=== PATIENT | female | born 1965 | race Caucasian/White ===

== ENCOUNTER 2017-04-20 23:02 | Inpatient (IN) | payer OTHER ==
[~2017-04-20] VITALS: Ht 162.6 cm; Wt 73.4 kg
[2017-04-20 23:42] LABS: HEMATOCRIT 35.7 % (36.0-46.0); MCH 29.2 PG (29.0-34.0); MCHC 33.9 G/DL (30.0-36.0); MCV 86.2 FL (83-99); MEAN PLAT.VOLUME 9.2 uM^3 (9.5-12.4); PLATELET COUNT 335 K/uL (156-360); RBC DIS.WIDTH-CV 13.1 % (11.8-14.6); RBC DIS.WIDTH-SD 40.9 % (39-53); RED BLOOD COUNT 4.14 M/uL (3.80-5.20); WHITE BLOOD COUNT 8.3 K/uL (4.1-10.2)
[2017-04-20 23:50] LABS: CHLORIDE 108 mEq/L (99-109); POTASSIUM 3.5 mEq/L (3.7-5.4); SODIUM 137 mEq/L (136-147)
[2017-04-20 23:52] LABS: GLUCOSE 96 mg/dL (70-99)
[2017-04-20 23:54] LABS: ANION GAP 8 MEQ/L (2-14)
[2017-04-20 23:56] LABS: GFR ESTIMATE (CALCULATED) > 59 mL/min/
[2017-04-20 23:57] LABS: UREA NITROGEN (BUN) 18 mg/dL (9-23)
[2017-04-21] VITALS (7 sets, daily range): BP systolic 107–120; BP diastolic 59–67
[2017-04-21 00:04] LABS: TROP-I INTERPRETATION NEGATIVE; TROPONIN-I 0.01 ng/mL (0.0-0.30)
[2017-04-21 01:44] LABS: TOTAL BILIRUBIN 0.4 mg/dL (0.0-1.0)
[2017-04-21 01:45] LABS: ALKALINE PHOSPHATASE 62 IU/L (3-129)
[2017-04-21 01:47] LABS: DIRECT BILIRUBIN 0.2 mg/dL (0.0-0.3)
[2017-04-21] MEDS ORDERED: BIOTIN1 MG PO (01:47)
[2017-04-21] MEDS ORDERED: FISH OIL 1,0001 EAC7 PO (01:47)
[2017-04-21 01:48] LABS: LIPASE 34 U/L (1.0-51.0)
[2017-04-21] MEDS ORDERED: ONE DAILY FOR1 EAC1 PO (01:48)
[2017-04-21] MEDS ORDERED: GARLIC100 MG PO (01:48)
[2017-04-21] MEDS ORDERED: FOLIC ACID0.4 MG PO (01:49)
[2017-04-21] MEDS ORDERED: LO-DOSE ASPIRIN81 M2 PO (01:49)
[2017-04-21] MEDS ORDERED: VITAMIN B12 100MCG PO (01:49)
[2017-04-21] MEDS ORDERED: VITAMIN E100 UNIT PO (01:50)
[2017-04-21 05:32] LABS: HEMATOCRIT 32.2 % (36.0-46.0); MCH 27.9 PG (29.0-34.0); MCHC 32.3 G/DL (30.0-36.0); MCV 86.3 FL (83-99); MEAN PLAT.VOLUME 9.3 uM^3 (9.5-12.4); PLATELET COUNT 305 K/uL (156-360); RBC DIS.WIDTH-CV 13.2 % (11.8-14.6); RBC DIS.WIDTH-SD 41.6 % (39-53); RED BLOOD COUNT 3.73 M/uL (3.80-5.20)
[2017-04-21 05:59] LABS: ANION GAP 10 MEQ/L (2-14); CHLORIDE 109 MEQ/L (99-109); GFR ESTIMATE (CALCULATED) > 59 mL/min/; GLUCOSE 93 mg/dL (70-99); HDL CHOLESTEROL 46 MG/DL (Desirable>=50); LDL CHOLESTEROL 92 mg/dL (Desirable<100); NON-HDL CHOLESTEROL 111 mg/dL (Desirable<160); SAMPLE HEMOLYSIS CHECK 0; SAMPLE ICTERIC CHECK 0; SAMPLE LIPEMIA CHECK 0; SODIUM 140 MEQ/L (136-147); TOTAL CHOLESTEROL 157 mg/dL (Desirable<200); TRIGLYCERIDES 95 MG/DL (Normal: <150); UREA NITROGEN (BUN) 20 mg/dL (9-23)
[2017-04-21 06:02] LABS: POTASSIUM 4.4 MEQ/L (3.7-5.4); TROP-I INTERPRETATION POSITIVE; TROPONIN-I 0.63 ng/mL (0.0-0.30)
[2017-04-21 08:00] LABS: INTER. NORMALIZED RATIO 1.1; PROTHROMBIN TIME 12.2 SEC (10.2-12.9)
[2017-04-21 08:02] LABS: PTT 30.6 SEC (25-37)
[2017-04-21 12:53] LABS: TROP-I INTERPRETATION INDETERMINATE; TROPONIN-I 0.42 ng/mL (0.0-0.30)
[2017-04-22] VITALS (28 sets, daily range): BP systolic 93–156; BP diastolic 62–126
[2017-04-22 02:13] LABS: INTER. NORMALIZED RATIO 1.1
[2017-04-22 02:16] LABS: PTT 81.1 SEC (25-37)
[2017-04-22 02:23] LABS: TROP-I INTERPRETATION NEGATIVE; TROPONIN-I 0.26 ng/mL (0.0-0.30)
[2017-04-22 04:36] LABS: METH RESISTANT S AUREUS PCR NEGATIVE (NEGATIVE)
[2017-04-22 04:38] LABS: PROBE CHECK PASS; SPECIMEN PROCESSING CONTROL PASS
[2017-04-22 06:35] LABS: HEMATOCRIT 36.1 % (36.0-46.0); MCH 28.3 PG (29.0-34.0); MCHC 32.4 G/DL (30.0-36.0); MCV 87.2 FL (83-99); PLATELET COUNT 320 K/uL (156-360); RBC DIS.WIDTH-CV 13.2 % (11.8-14.6); RBC DIS.WIDTH-SD 42.4 % (39-53); RED BLOOD COUNT 4.14 M/uL (3.80-5.20); WHITE BLOOD COUNT 8.9 K/uL (4.1-10.2)
[2017-04-22 11:27] LABS: TROP-I INTERPRETATION POSITIVE; TROPONIN-I 44.46 ng/mL (0.0-0.30)
[2017-04-22 16:44] LABS: TROP-I INTERPRETATION POSITIVE; TROPONIN-I > 50.00 ng/mL (0.0-0.30)
[2017-04-23] VITALS (22 sets, daily range): BP systolic 106–140; BP diastolic 69–100
[2017-04-23 11:02] LABS: EOSINOPHIL (%) 0.5 % (0-5); EOSINOPHIL COUNT 0.1 K/uL (0-0.3); HEMATOCRIT 34.5 % (36.0-46.0); IMMATURE GRANULOCYTE (%) 0.3 % (0.0-0.7); INSTRUMENT ABS NEUTROPHIL CT 7.2 K/uL; LYMPHOCYTE COUNT 1.8 K/uL (1.0-2.8); MCH 28.3 PG (29.0-34.0); MCHC 32.8 G/DL (30.0-36.0); MCV 86.5 FL (83-99); MEAN PLAT.VOLUME 9.1 uM^3 (9.5-12.4); MONOCYTE (%) 12.5 % (3-12); MONOCYTE COUNT 1.3 K/uL (0-0.8); NEUTROPHIL (%) 69.2 % (45-76); NEUTROPHIL COUNT 7.2 K/uL (1.8-6.4); PLATELET COUNT 282 K/uL (156-360); RBC DIS.WIDTH-CV 13.2 % (11.8-14.6); RBC DIS.WIDTH-SD 42.1 % (39-53); RED BLOOD COUNT 3.99 M/uL (3.80-5.20); WHITE BLOOD COUNT 10.4 K/uL (4.1-10.2)
[2017-04-23 11:23] LABS: TROP-I INTERPRETATION POSITIVE; TROPONIN-I 34.79 ng/mL (0.0-0.30)
[2017-04-23 11:39] LABS: ANION GAP 6 MEQ/L (2-14); CHLORIDE 109 MEQ/L (99-109); GFR ESTIMATE (CALCULATED) > 59 mL/min/; GLUCOSE 111 mg/dL (70-99); MAGNESIUM 1.9 mg/dl (1.3-2.7); POTASSIUM 4.3 MEQ/L (3.7-5.4); SAMPLE HEMOLYSIS CHECK 0; SAMPLE ICTERIC CHECK 0; SAMPLE LIPEMIA CHECK 0; SODIUM 138 MEQ/L (136-147); UREA NITROGEN (BUN) 7 mg/dL (9-23)
[2017-04-24] VITALS: BP 113/81
[2017-04-24 04:00] VITALS: BP 141/96
[2017-04-24 05:39] LABS: HEMATOCRIT 35.5 % (36.0-46.0); MCH 28.2 PG (29.0-34.0); MCHC 32.4 G/DL (30.0-36.0); MEAN PLAT.VOLUME 9.3 uM^3 (9.5-12.4); PLATELET COUNT 314 K/uL (156-360); RBC DIS.WIDTH-CV 13.2 % (11.8-14.6); RBC DIS.WIDTH-SD 42.1 % (39-53); RED BLOOD COUNT 4.08 M/uL (3.80-5.20); WHITE BLOOD COUNT 9.7 K/uL (4.1-10.2)
[2017-04-24 08:00] VITALS: BP 114/84
[2017-04-24 09:20] LABS: Estimated Average Glucose 105 mg/dL (70-123); HEMOGLOBIN A1c (GLYCOHEMOGLOB) 5.3 % HGB (Below 5.7)
[2017-04-24 12:00] VITALS: BP 96/68
[2017-04-24 16:00] VITALS: BP 98/71
[2017-04-25 04:48] LABS: TROP-I INTERPRETATION POSITIVE
[2017-04-25 04:51] LABS: TROPONIN-I 27.51 ng/mL (0.0-0.30)
[2017-04-25 08:00] VITALS: BP 118/80
[2017-04-25 12:00] VITALS: BP 91/59
[2017-04-25 16:00] VITALS: BP 96/71
[2017-04-25 20:00] VITALS: BP 108/67
[2017-04-26] VITALS (7 sets, daily range): BP systolic 81–107; BP diastolic 47–72
[2017-04-26 05:56] LABS: HEMATOCRIT 36.2 % (36.0-46.0); MCH 28.4 PG (29.0-34.0); MCHC 32.6 G/DL (30.0-36.0); MEAN PLAT.VOLUME 9.4 uM^3 (9.5-12.4); PLATELET COUNT 393 K/uL (156-360); RBC DIS.WIDTH-CV 13.2 % (11.8-14.6); RED BLOOD COUNT 4.16 M/uL (3.80-5.20); WHITE BLOOD COUNT 8.2 K/uL (4.1-10.2)
[2017-04-26 14:53] LABS: INTER. NORMALIZED RATIO 1.2
[2017-04-27] VITALS: BP 106/70
[2017-04-27 02:00] VITALS: BP 100/61
[2017-04-27 04:00] VITALS: BP 95/58
[2017-04-27 05:35] LABS: HEMATOCRIT 36.7 % (36.0-46.0); MCH 28.8 PG (29.0-34.0); MCHC 33.2 G/DL (30.0-36.0); MCV 86.6 FL (83-99); MEAN PLAT.VOLUME 9.4 uM^3 (9.5-12.4); PLATELET COUNT 405 K/uL (156-360); RBC DIS.WIDTH-CV 13.1 % (11.8-14.6); RBC DIS.WIDTH-SD 40.9 % (39-53); RED BLOOD COUNT 4.24 M/uL (3.80-5.20); WHITE BLOOD COUNT 8.3 K/uL (4.1-10.2)
[2017-04-27 05:53] LABS: INTER. NORMALIZED RATIO 1.2; PROTHROMBIN TIME 14.1 SEC (10.2-12.9)
[2017-04-27 06:00] VITALS: BP 105/64
[2017-04-27 06:16] LABS: ANION GAP 9 MEQ/L (2-14); CHLORIDE 105 MEQ/L (99-109); GFR ESTIMATE (CALCULATED) > 59 mL/min/; GLUCOSE 95 mg/dL (70-99); POTASSIUM 4.9 MEQ/L (3.7-5.4); SAMPLE HEMOLYSIS CHECK 0; SAMPLE ICTERIC CHECK 0; SAMPLE LIPEMIA CHECK 0; SODIUM 138 MEQ/L (136-147)
[2017-04-27 06:17] LABS: UREA NITROGEN (BUN) 25 mg/dL (9-23)
[2017-04-27 10:00] VITALS: BP 99/61
[2017-04-27] MEDS ORDERED: COUMADIN5 MG PO (11:38)
[2017-04-27] MEDS ORDERED: CLOPIDOGREL75 MG PO (11:38)
[2017-04-27] MEDS ORDERED: CITALOPRAM HBR20 MG PO (11:38)
[2017-04-27] MEDS ORDERED: PRAVASTATIN SOD80 MG PO (11:38)
[2017-04-27] MEDS ORDERED: NITROSTAT0.4 MG SL (11:38)
[2017-04-27] MEDS ORDERED: IMDUR30 MG PO (11:38)
[2017-04-27] MEDS ORDERED: LISINOPRIL5 MG PO (11:38)
== END 2017-04-27 12:35 | disposition home or self-care (01) | DRG 282 ==
LOC: EME 23:02 → EDOF 04-21 01:14 → ENRESERV 04-21 01:15 → 5WEST 04-21 02:54 → 4WEST 04-21 06:27 → ENRESERV 04-21 06:31 → 4EAST 04-21 08:34 → ENRESERV 04-22 02:04 → 4WEST 04-22 03:10
PROVIDERS: Emergency Medicine; Hospitalist; Internal Medicine; Internal Medicine Cardiovascular Disease; Nurse Practitioner Adult Health
DX: I25.42 Coronary artery dissection (principal); I21.09 ST elevation (STEMI) myocardial infarction involving other coronary artery of anterior wall; I25.5 Ischemic cardiomyopathy; I49.3 Ventricular premature depolarization; F41.9 Anxiety disorder, unspecified; E78.5 Hyperlipidemia, unspecified; I20.9 Angina pectoris, unspecified; I10 Essential (primary) hypertension; Z68.28 Body mass index [BMI] 28.0-28.9, adult; Z82.49 Family history of ischemic heart disease and other diseases of the circulatory system; Z98.84 Bariatric surgery status; Z79.01 Long term (current) use of anticoagulants; Z79.82 Long term (current) use of aspirin; Z79.899 Other long term (current) drug therapy
CPT/HCPCS: 70496; 70498; 71020; 71275; 74174; 80048; 80061; 80076; 83036; 83690; 83735; 84100; 84484; 85025; 85027; 85347; 85379; 85610; 85730; 86850; 86900; 86901; 87641; 93005; 93306; 94799; 99281; 99285; C1769; C1887; J1644; J2250; J2270; J2405; J3010; J7030